=== PATIENT | female | born 1995 | race Caucasian/White ===

== ENCOUNTER → 2023-11-09 13:28 | Outpatient (REF) | payer MEDICAID, SELFPAY | LOC: PNTC 13:28 | PROVIDERS: ATTENDING PHYSICIAN Obstetrics & Gynecology | DX: Z34.82 Encounter for supervision of other normal pregnancy, second trimester (principal) | CPT/HCPCS: 76805 ==

== ENCOUNTER 2024-01-15 22:25 | Observation (INO) | payer OTHER, SELFPAY ==
[2024-01-15 22:44] VITALS: BP 122/74; BMI 25.3
[2024-01-15 23:17] LABS: % Basophils 0.7 % (0-2); % Eosinophils 1.2 % (0-6); % Lymphocytes 21.3 % (20.5-51.1); % Monocytes 8.1 % (1.7-9.3); % Neutrophils 66.7 % (42.2-75.2); Absolute Basophils 0.1 10^3/uL (0-0.2); Absolute Eosinophils 0.1 10^3/uL (0-0.7); Absolute Immature Granulocytes 0.2 10^3/uL (0-0.05); Absolute Lymphocytes 1.7 10^3/uL (1.2-3.4); Absolute Monocytes 0.7 10^3/uL (0.1-0.6); Absolute Neutrophils 5.4 10^3/uL (1.4-6.5); Hematocrit 31.1 % (37.0-47.0); Mean Corp Hgb Conc. 35.4 g/dL (33.0-37.0); Mean Corpuscular Hgb 31.7 pg (27.0-31.0); Mean Corpuscular Volume 89.6 fL (81.0-99.0); Mean Platelet Volume 9.4 fL (7.4-10.4); Nucleated Red Blood Cells % 0 %; Platelet Count 303 10^3/uL (130-400); Red Blood Cell Count 3.47 10^6/uL (4.20-5.40); Red Cell Dist. Width 12.1 % (11.5-14.5); White Blood Cell Count 8.1 10^3/uL (4.8-10.8)
[2024-01-15] MEDS: PENICILLIN 110 UNITS IV (23:28)
[2024-01-15] MEDS: LR 1000 IV (23:29)
[2024-01-16] MEDS: LR 1000 IV (00:01)
[2024-01-16] MEDS: PENICILLIN 55 UNITS IV (03:34)
== END 2024-01-16 06:30 | disposition home or self-care (01) ==
LOC: LDRP 22:25
PROVIDERS: ADMITTING PHYSICIAN Advanced Practice Midwife
DX: O47.1 False labor at or after 37 completed weeks of gestation (principal); R10.9 Unspecified abdominal pain; O99.820 Streptococcus B carrier state complicating pregnancy; Z3A.38 38 weeks gestation of pregnancy; Z28.310 Unvaccinated for COVID-19
CPT/HCPCS: 36415; 85025; 86780; 86850; 86900; 86901; G0378

== ENCOUNTER 2024-01-28 07:05 | Inpatient (IN) | payer OTHER, SELFPAY ==
[2024-01-28 07:17] VITALS: BP 114/72; BMI 25.8
[2024-01-28] MEDS: LR 1000 IV ×2 (07:45→10:42)
[2024-01-28] MEDS: PENICILLIN 110 UNITS IV (07:58)
[2024-01-28 09:06] LABS: % Basophils 0.7 % (0-2); % Eosinophils 0.8 % (0-6); % Immature Granulocytes 3.5 % (0-0.5); % Lymphocytes 22.3 % (20.5-51.1); % Monocytes 6.3 % (1.7-9.3); % Neutrophils 66.4 % (42.2-75.2); Absolute Basophils 0.1 10^3/uL (0-0.2); Absolute Eosinophils 0.1 10^3/uL (0-0.7); Absolute Immature Granulocytes 0.3 10^3/uL (0-0.05); Absolute Lymphocytes 1.9 10^3/uL (1.2-3.4); Absolute Monocytes 0.6 10^3/uL (0.1-0.6); Absolute Neutrophils 5.8 10^3/uL (1.4-6.5); Hematocrit 33.2 % (37.0-47.0); Hemoglobin 11.4 g/dL (12.0-16.0); Mean Corp Hgb Conc. 34.3 g/dL (33.0-37.0); Mean Corpuscular Hgb 31.9 pg (27.0-31.0); Mean Platelet Volume 9.9 fL (7.4-10.4); Nucleated Red Blood Cells % 0 %; Platelet Count 301 10^3/uL (130-400); Red Blood Cell Count 3.57 10^6/uL (4.20-5.40); Red Cell Dist. Width 12.3 % (11.5-14.5); White Blood Cell Count 8.7 10^3/uL (4.8-10.8)
[2024-01-28] MEDS: PITOCIN 30 UNITS/NSS 500 ML IV ×2 (10:21→14:22)
[2024-01-28] MEDS: PENICILLIN 55 UNITS IV (12:43)
[2024-01-28] MEDS: XYLOCAINE-MPF 1% VIAL 30 ML INFIL (14:34)
[2024-01-29] MEDS: SENOKOT-S 1 TABLET PO (09:16)
== END 2024-01-30 11:25 | disposition home or self-care (01) | DRG 807 ==
LOC: LDRP 07:05
PROVIDERS: ADMITTING PHYSICIAN Advanced Practice Midwife
PROC: 0KQM0ZZ Repair Perineum Muscle, Open Approach (ICD-10-PCS; 2024-01-28)
PROC: 10E0XZZ Delivery of Products of Conception, External Approach (ICD-10-PCS; 2024-01-28)
PROC: 6A550ZT Pheresis of Cord Blood Stem Cells, Single (ICD-10-PCS; 2024-01-28)
DX: O42.02 Full-term premature rupture of membranes, onset of labor within 24 hours of rupture (principal); Z37.0 Single live birth; O48.0 Post-term pregnancy; Z3A.40 40 weeks gestation of pregnancy; O70.1 Second degree perineal laceration during delivery; O99.824 Streptococcus B carrier state complicating childbirth; O69.81X0 Labor and delivery complicated by cord around neck, without compression, not applicable or unspecified; Z28.310 Unvaccinated for COVID-19
CPT/HCPCS: 85025; 86850; 86900; 86901